=== PATIENT | female | born 1980 | race Two or more races ===

== ENCOUNTER 2024-02-03 04:11 | Emergency (ER) | payer BC, SELFPAY ==
--- NOTE | ~2024-02-03 | CT_ITS ---
EXAMINATION: CT ABDOMEN AND PELVIS WITH CONTRAST CLINICAL INFORMATION: Severe abdominal pain, diarrhea COMPARISON: None available. TECHNIQUE: Multidetector volumetric images were obtained from the superior aspect of the liver through the pubic symphysis following administration 85 mL of Omnipaque 350 intravenous contrast. Sagittal and coronal reformatted images were obtained on the technologist's workstation. Oral contrast: No This CT examination was performed using dose optimization techniques as appropriate, variously including the following: *Automated exposure control *Adjustment of mA and/or kV according to patient size (this includes techniques or standardized protocols for targeted exams where dose is matched to indication/reason for exam; i.e. extremities or head) *Use of iterative reconstruction technique DLP: Full 85 mGy-cm FINDINGS: LUNG BASES: Small curvilinear dependent atelectasis is seen in posterior right lower lobe. LIVER: No focal lesion is seen in the liver. GALLBLADDER AND BILIARY TREE: Gallbladder appears unremarkable without calcified stones. Common bile duct is not dilated. SPLEEN: The spleen is normal in size without focal lesion. PANCREAS: The pancreas appears unremarkable. ADRENAL GLANDS: Adrenal glands are normal in size without focal lesion bilaterally. KIDNEYS: Bilateral kidneys are normal in size without focal lesion. BOWELS: There is no abnormal dilatation of the large and small bowel loops. Ascending colon and right transverse colon are mildly distended with feces. RETROPERITONEUM: No abnormally enlarged retroperitoneal lymph nodes, mass or hematoma could be seen. BLOOD VESSELS: Abdominal aorta is normal in size and smoothly patent. ABDOMINAL WALL: Small umbilical hernia containing mesenteric fat is seen. PERITONEUM: There was no ascites. There were no abdominal peritoneal inflammatory changes seen. No free peritoneal air was seen. No abnormally enlarged mesenteric lymph nodes are found. BONES: No fracture or dislocation. No focal bone lesion diagnostic of metastatic disease could be seen in the lumbar region. EXAMINATION: CT pelvis. FINDINGS: URINARY BLADDER: Urinary bladder fills normally with urine. BOWELS: There is no abnormal dilatation of the large and small bowel loops. Normal appendix is seen projecting medial and superior to the cecum. GENITAL ORGANS: A mildly crenulated rim-enhancing cystic lesion is seen in the right adnexa measuring 3.6 x 2.9 cm in size. No adnexal mass lesion could be seen. The uterus is bulky, containing multiple hypoenhancing myometrial mass lesions including an exophytic enhancing lesion protruding from right lateral uterine fundus measuring 3.5 x 2.2 cm in size. LYMPH NODES: No abnormally enlarged iliac or inguinal lymph nodes are seen. PERITONEUM: No inflammatory changes, ascites or free peritoneal air are found in the pelvis. BONES: No fracture or dislocation. No focal bone lesion diagnostic of metastatic disease could be seen in the pelvis. CT/CT abdomen pelvis w IV con IMPRESSION: 1. No evidence of bowel obstruction or inflammatory changes. 2. Normal appendix. 3. Small umbilical hernia containing mesenteric fat. 4. Findings are compatible with uterine leiomyomatosis. 5. A mildly crenulated rim-enhancing cystic lesion is seen in the right adnexa, compatible with corpus luteum. Findings are overwhelmingly likely to represent a benign functional cyst. No followup imaging recommended.
[2024-02-03 04:19] VITALS: BP 114/63; PULSE 77; RESP 18; TEMP 36.8; O2SAT 99; BMI 22.5
--- NOTE | 2024-02-03 04:27 | ED.ABDPAIN ---
HPI - Abdominal Pain General Chief Complaint: Abdominal Pain Stated Complaint: stomach burning Time Seen by Provider: 02/03/24 04:24 Source: patient Mode of arrival: ambulatory Limitations: no limitations History of Present Illness HPI narrative: 43 yo female with PMH of GERD who takes 40mg of pantoprazole notes for the past 5 days she has had intense all over burning abdominal pain with non bloody non black stools daily states she is even trying to take pepcid but it is not helping. Came in as the pain is more severe than usual. Denies known triggers or food exposures. No recent travel or abx use. She notes the diarrhea was painful and crampy at one point and she passed out on the toilet - no CP/SOB she has hx of same in past. She also has hx of anemia but does not take Fe due to constipation MD elicited complaint: abdominal pain Pertinent past history: other (GERD) Onset (ago): day(s) (5) Pain Consistency: constant Location: diffuse Severity: severe Quality: burning Radiation: none Migration to: no migration Exacerbating factors: eating Relieving factors: nothing Associated symptoms: nausea and diarrhea Treatments prior to arrival: antacids Related Data Allergies Allergy/AdvReac Type Severity Reaction Status Date / Time No Known Allergies Allergy Verified 02/03/24 04:21 Review of Systems Review of Systems Constitutional : No Weight loss, No Fever, No Chills ENT/Mouth : No sore throat, No Rhinorrhea Eyes: No Swelling, No Redness Cardiovascular : No Chest Pain, No SOB, NoEdema Respiratory : No Cough, No Sputum, No Wheezing Gastrointestinal : Positive Nausea, no Vomiting, positive Diarrhea, positive abdominal Pain, No Hematochezia, No Melena Genitourinary : No Dysuria, No Urinary Frequency, No Hematuria, No Urgency Musculoskeletal : No joint pain, No Myalgias, No Joint Swelling Skin : No Skin Lesions, No rash Neuro : No Weakness, No Numbness, No Dizziness, No Headache All other systems reviewed and are negative. [facility] Past Medical History Attestation statement: The following information was validated with the patient. Source: old records reviewed Medical History GERD (gastroesophageal reflux disease) Social History Social History (Updated 02/03/24 @ 05:25 by Lu Bustillo DO) Patient Tobacco Use Status: Never used Tobacco Smoked in Last 30 Days: No Use of substances other than those prescribed or required for medical reasons: No Advance Directives: No Advance Directives Information Provided: No Do you have a plan to hurt others: No Plan Patient : No Physical Exam ED Vital Signs: Vital Signs - 24 hr 02/03/24 04:19 02/03/24 05:11 02/03/24 05:57 Temperature 98.2 F 97.9 F Pulse Rate 77 76 Respiratory Rate 18 15 16 Blood Pressure 114/63 119/75 Pulse Oximetry 99 98 Oxygen Delivery Method Room Air Room Air BMI result Body Mass Index 22.5 Appearance: Alert. Oriented X3. No acute distress. Eyes: Pupils equal, round and reactive to light. ENT: Pharynx normal. Neck: Normal inspection. Neck supple. CVS: Normal heart rate and rhythm. Pulses normal. Respiratory: No respiratory distress. Breath sounds normal. Abdomen: Soft and mild diffuse ttp no rebound or guarding Skin: Skin warm and dry. pale skin color. Normal skin turgor. Extremities: No lower extremity edema. No calf ttp Neuro: Oriented X 3. No motor deficit. No sensory deficit. Course Course Course Narrative: signed out to Dr. Perez pending CT scan results Reevaluation(s) Reevaluation #1: pain improved with IV morphine Medical Decision Making Medical Decision Making [facility] Narrative: 43 yo female with PMH of GERD on PPI and H2 josé luis here with c/o worsening burning diffuse pain along with diarrhea denies new changes or exposures at this time basic labs and possible CT scan for colitis - IVF, IV morphine for pain and GI cocktail. Differential Diagnosis Differential Diagnoses: The differential diagnosis associated with the presentation includes gastritis, GERD, colitis, diverticulitis Admission/Observation Consideration of admission/observation: Escalation of care including admission/observation considered Lab Data [facility] Lab Attestation statement: I reviewed the patient's lab results. hx of anemia hemoglobin at 9 BP stable suspect chronic in nature 02/03/24 04:46 02/03/24 04:46 Labs: Lab Results 02/03/24 Range/Units 04:46 WBC 6.4 (4.8-10.8) X10*3/uL RBC 4.44 (4.20-5.50) X10*6/uL Hgb 9.0 L (12.0-16.0) g/dl Hct 27.5 L (37.0-47.0) % MCV 61.9 L (80.0-98.0) fL MCH 20.3 L (27.0-33.0) pg MCHC 32.7 (31.0-35.0) g/dl RDW 20.5 H (11.0-16.0) % Plt Count 262 (160-400) X10*3/uL MPV Not Reportable Immature Gran % (Auto) 0.2 (0.0-0.4) % Neut % (Auto) 59.3 (45-73) % Lymph % (Auto) 32.0 (20-40) % Kendall % (Auto) 6.0 (2-11) % Eos % (Auto) 2.0 (0-4) % Baso % (Auto) 0.5 (0-2) % Lymph # (Auto) 2.0 (1.2-4.9) X10*3/uL Kendall # (Auto) 0.4 (0.1-1.2) X10*3/uL Eos # (Auto) 0.1 (0.0-0.4) X10*3/uL Baso # (Auto) 0.0 (0.0-0.2) X10*3/uL Abs Immat Gran (auto) 0.01 (0.00-0.03) X10*3/uL Absolute Neuts (auto) 3.8 (2.0-8.3) x10*3/uL Absolute Nucleated RBC 0.000 (0.0-0.012) X10*3/uL Nucleated RBC % (auto) 0.0 (0.0-0.2) /100WBC Smear Tech's Comments VERIFIED Sodium 137 (135-145) mmol/L Potassium 3.6 (3.3-5.1) mmol/L Chloride 107 (96-108) mmol/L Carbon Dioxide 24 (22-29) mmol/L Anion Gap 10 L (12-20) BUN 19 H (9-16) mg/dL Creatinine 0.66 (0.5-1.4) mg/dL Estim Creat Clear Calc 105.7 Estimated GFR > 60 Random Glucose 91 (60-115) mg/dL Calcium 8.6 (8.4-10.2) mg/dL Magnesium 1.8 (1.6-2.6) mg/dL Total Bilirubin 0.4 (0.0-1.0) mg/dL Direct Bilirubin 0.1 (0.0-0.5) mg/dL AST 13 (5-31) U/L ALT 12 (0-31) U/L Alkaline Phosphatase 31 L (39-117) U/L Total Protein 6.6 (6.5-8.0) g/dL Albumin 3.6 (3.5-5.0) g/dL Lipase 29 (8-78) U/L Beta HCG, Quant < 2 mIU/mL External Record Review External record reviewed: Outpatient record Prescription Management I considered prescription management with: Other Medications Administered Discontinued Medications Generic Name Dose Route Start Last Admin Trade Name Freq PRN Reason Stop Dose Admin Al Hydroxide/Mg Hydroxide 15 ml 02/03/24 04:37 02/03/24 05:10 Magnesium Hydrox/Alum Hydrox 30 Ml Oral.Susp PO 02/03/24 04:38 15 ml ONCE ONE Administration Sodium Chloride 1,000 mls @ 999 mls/hr 02/03/24 04:45 02/03/24 05:05 Ns IV 02/03/24 05:45 999 mls/hr .Q1H1M SHALOM Administration Iohexol 85 ml 02/03/24 06:29 02/03/24 06:30 Iohexol 350 Mg/Ml 100 Ml Infus..Btl IV 02/03/24 06:30 85 ml ONCE ONE Administration Lidocaine HCl 15 ml 02/03/24 04:37 02/03/24 05:10 Lidocaine Hcl Viscous 2 % 15 Ml Solution MUCOUS MEM 02/03/24 04:38 15 ml ONCE ONE Administration Morphine Sulfate 4 mg 02/03/24 04:37 02/03/24 05:11 Morphine Sulfate 4 Mg/Ml Cartridge IVPUSH 02/03/24 04:38 4 mg ONCE ONE Administration Protocol Ondansetron HCl 4 mg 02/03/24 04:37 02/03/24 05:11 Ondansetron Hcl 4 Mg/2 Ml Vial IVPUSH 02/03/24 04:38 4 mg ONCE ONE Administration Discharge Plan Discharge Clinical Impression: Acute diarrhea Abdominal pain Qualifiers: Abdominal location: generalized Qualified Code(s): R10.84 - Generalized abdominal pain Patient Disposition: Home, Self-Care Instructions: Acute Diarrhea (ED), Abdominal Pain (ED) Additional Instructions: hemoglobin 9.0 please make sure you follow up with your doctor and trend this Print Language: Bulgarian
[2024-02-03] MEDS: 0.9 % Sodium Chloride 1,000 ML 999 ML IV (05:05)
[2024-02-03 05:06] LABS: Basophils Percent Auto 0.5 % (0-2); Eosinophils Absolute Auto 0.1 X10*3/uL (0.0-0.4); Hematocrit 27.5 % (37.0-47.0); Imm Gran Abs Auto 0.01 X10*3/uL (0.00-0.03); Imm Gran Pct Auto 0.2 % (0.0-0.4); MANUAL DIFF FLAG SCAN; Mean Corpuscular HGB Conc 32.7 g/dl (31.0-35.0); Mean Corpuscular Hemoglobin 20.3 pg (27.0-33.0); Monocytes Absolute Auto 0.4 X10*3/uL (0.1-1.2); Neutrophils Absolute Auto 3.8 x10*3/uL (2.0-8.3); Neutrophils Percent Auto 59.3 % (45-73); PLT ABN DIST 1; Platelet Count 262 X10*3/uL (160-400); Red Blood Count 4.44 X10*6/uL (4.20-5.50); Red Cell Distribution Width 20.5 % (11.0-16.0); SCAN SMEAR FLAG 1; White Blood Count 6.4 X10*3/uL (4.8-10.8)
[2024-02-03 05:07] LABS: Mean Corpuscular Volume 61.9 fL (80.0-98.0)
[2024-02-03] MEDS: Lidocaine HCl Viscous 2 % 15 ML SOLUTION MUCOUS MEM (05:10)
[2024-02-03] MEDS: Magnesium Hydrox/Alum Hydrox 30 ML ORAL.SUSP 15 ML PO (05:10)
[2024-02-03 05:11] VITALS: RESP 15
[2024-02-03] MEDS: ondansetron HCL 4 MG/2 ML VIAL IVPUSH (05:11)
[2024-02-03] MEDS: Morphine Sulfate 4 MG/ML CARTRIDGE IVPUSH (05:11)
--- NOTE | 2024-02-03 05:19 | PC.NURSE ---
pt from home, a&ox4, respirations even and unlabored, reports upper abdominal burning x1 week with episodes of nausea and diarrhea. pt reports trying over the counter relief which did not seem to help. pt denies blood in stool.20G placed in left wrist, pt medicated per mar. call woodard within reach; normal sinus on tele 70-72bpm.
[2024-02-03 05:23] LABS: SLIDE REVIEW VERIFIED
[2024-02-03 05:26] LABS: Alanine Aminotransferase 12 U/L (0-31); Albumin Level 3.6 g/dL (3.5-5.0); Alkaline Phosphatase 31 U/L (39-117); Anion Gap 10 (12-20); Aspartate Amino Transferase 13 U/L (5-31); Bilirubin Direct 0.1 mg/dL (0.0-0.5); Bilirubin Total 0.4 mg/dL (0.0-1.0); Blood Urea Nitrogen 19 mg/dL (9-16); Calcium 8.6 mg/dL (8.4-10.2); Carbon Dioxide 24 mmol/L (22-29); Chloride 107 mmol/L (96-108); Creatinine Clr Calc Pharmacy 105.7; Estimated Glomerular Filt Rate > 60; Glucose Random 91 mg/dL (60-115); HCG Quantitative < 2 mIU/mL; Lipase 29 U/L (8-78); Magnesium 1.8 mg/dL (1.6-2.6); Potassium 3.6 mmol/L (3.3-5.1); Sodium 137 mmol/L (135-145); Total Protein 6.6 g/dL (6.5-8.0)
[2024-02-03 05:57] VITALS: BP 119/75; PULSE 76; RESP 16; TEMP 36.6; O2SAT 98
[2024-02-03] MEDS: iohexoL 350 MG/ML 100 ML INFUS..BTL 85 ML IV (06:30)
[2024-02-03] MEDS: Magnesium Hydrox/Alum Hydrox 30 ML ORAL.SUSP PO (08:57)
[2024-02-03] MEDS: Meclizine HCl 25 MG TABLET PO (08:57)
[2024-02-03] MEDS: 0.9 % Sodium Chloride 1,000 ML 999 ML IVCONT (08:57)
--- NOTE | 2024-02-03 08:58 | PC.NURSE ---
pt medicated per order float RN
[2024-02-03 10:17] VITALS: BP 112/66; PULSE 73; RESP 16; TEMP 36.8; O2SAT 100
--- NOTE | 2024-02-03 10:19 | PC.NURSE ---
patient awake and alert. skin pwd, resp even and non labored. speaking in full, clear sentences. reports 7/10 diffuse abd pain, describes the pain as burning. states that meds earlier today did help. urine sample obtained and sent to lab. pt denies further episodes of diarrhea
[2024-02-03 10:28] LABS: Appearance Urine Clear; Color Urine Yellow; Glucose Urine UA Negative (Negative); Leukocyte Esterase Urine Negative (Negative); Nitrite Urine Negative (Negative); Specific Gravity - Urine >= 1.030 (1.005-1.025); Urine Blood Negative (Negative); Urine Ketones Negative (Negative); Urine Protein Negative (Neg-Trace)
[2024-02-03 11:09] VITALS: BP 116/72; PULSE 76; RESP 18; TEMP 36.8; O2SAT 98
== END 2024-02-03 11:10 | disposition home or self-care (01) ==
PROVIDERS: Emergency Medicine; Emergency Provider Emergency Medicine
DX: R19.7 Diarrhea, unspecified (principal); R10.84 Generalized abdominal pain; R10.2 Pelvic and perineal pain; R11.2 Nausea with vomiting, unspecified; Z79.899 Other long term (current) drug therapy
CPT/HCPCS: 36415; 74177; 80048; 80076; 81003; 83690; 83735; 84702; 85025; 96361; 96374; 96375; 99284; 99285; J2270; J2405; Q9967